=== PATIENT | male | born 1990 | race Caucasian/White ===

== ENCOUNTER 2018-04-02 17:15 | Emergency (ER) | payer OTHER ==
--- NOTE | 2018-04-02 18:43 | ED ---
Male Urogenital HPI - General Chief complaint: Urogenital Stated complaint: abd and testicle pain Time Seen by Provider: 04/02/18 17:43 Source: patient, RN notes reviewed Mode of arrival: ambulatory Limitations: no limitations - History of Present Illness Initial comments: 27-year-old male presents emergency from for left-sided testicular groin pain. Patient states that he's had pain for last 2 weeks. He states initially started after work. He states that he works for [employer] states he does large amount of heavy lifting. He does state throughout the day with ambulation and lifting the pain worsens. Patient was seen at urgent care was diagnosed with groin strain. Patient states symptoms have persisted though he does admit that he has not rested. Patient denies any scrotal swelling, rash or redness. Patient has no dysuria no hematuria. Patient states that the pain originates from his scrotum and physically radiates up in his abdomen has no abdominal pain denies any diarrhea, constipation, nausea vomiting. - Related Data Home Medications Medication Instructions Recorded Confirmed Ibuprofen [Motrin Ib] 800 mg PO TID PRN 04/02/18 04/02/18 Allergies Allergy/AdvReac Type Severity Reaction Status Date / Time caramel Allergy Nausea & Verified 04/02/18 17:45 Vomiting Review of Systems ROS Statement: Those systems with pertinent positive or pertinent negative responses have been documented in the HPI. ROS Other: All systems not noted in ROS Statement are negative. Past Medical History Past Medical History: No Reported History History of Any Multi-Drug Resistant Organisms: None Reported Past Surgical History: No Surgical Hx Reported Past Psychological History: No Psychological Hx Reported Smoking Status: Current every day smoker Past Alcohol Use History: None Reported Past Drug Use History: Marijuana General Exam Limitations: no limitations General appearance: alert, in no apparent distress Head exam: Present: atraumatic, normocephalic, normal inspection Respiratory exam: Present: normal lung sounds bilaterally. Absent: respiratory distress, wheezes, rales, rhonchi, stridor Cardiovascular Exam: Present: regular rate, normal rhythm, normal heart sounds. Absent: systolic murmur, diastolic murmur, rubs, gallop, clicks GI/Abdominal exam: Present: soft, normal bowel sounds. Absent: distended, tenderness, guarding, rebound, rigid exam: Present: normal inspection, testicular tenderness (Mild left). Absent : scrotal swelling, vertical testicular lie Skin exam: Present: warm, dry, intact, normal color. Absent: rash Course Vital Signs 04/02/18 04/02/18 17:31 18:50 Temperature 98.4 F Pulse Rate 95 77 Respiratory 18 16 Rate Blood Pressure 135/73 161/72 O2 Sat by Pulse 98 96 Oximetry Medical Decision Making - Medical Decision Making 27-year-old male presents emergency department for left sided scrotal groin pain. Patient ultrasound which shows no acute abnormality urinalysis is clear. Patient symptoms seem to related to strain. Patient has no abdominal tenderness she's had normal bowel movements and normal vitals. Patient will be discharged at this time advised to rest and follow-up with his PCP urology will be provided. - Lab Data Lab Results 04/02/18 Range/Units 18:40 Urine Color Yellow Urine Appearance Clear (Clear) Urine pH 5.5 (5.0-8.0) Ur Specific [place] 1.024 (1.001-1.035) Urine Protein Negative (Negative) Urine Glucose (UA) Negative (Negative) Urine Ketones Negative (Negative) Urine Blood Negative (Negative) Urine Nitrite Negative (Negative) Urine Bilirubin Negative (Negative) Urine Urobilinogen <2.0 (<2.0) mg/dL Ur Leukocyte Esterase Negative (Negative) Disposition Clinical Impression: Inguinal muscle strain Disposition: HOME SELF-CARE Condition: Stable Instructions: Muscle Strain (ED) Additional Instructions: Please return to the Emergency Department if symptoms worsen or any other concerns. Is patient prescribed a controlled substance at d/c from ED?: No Referrals: Alverto Fan MD [STAFF PHYSICIAN] - 1-2 days Time of Disposition: 19:46
[2018-04-02 18:59] LABS: Appearance,Urine Clear (Clear); Bilirubin,Urine Negative (Negative); Blood,Urine Negative (Negative); Color,Urine Yellow; Glucose,Urine (UA) Negative (Negative); Ketones,Urine Negative (Negative); Leukocyte Esterase,Urine Negative (Negative); Nitrite,Urine Negative (Negative); PH, Urine 5.5 (5.0-8.0); Protein,Urine Negative (Negative); Specific Gravity,Urine 1.024 (1.001-1.035); Urobilinogen,Urine <2.0 mg/dL (<2.0)
--- NOTE | 2018-04-02 19:37 | US ---
EXAMINATION TYPE: US scrotum with doppler. Grayscale and color Doppler Duplex imaging performed of t he scrotum. DATE OF EXAM: 04/02/2018 COMPARISON: NONE CLINICAL HISTORY: Pain. Pain EXAM MEASUREMENTS: TESTICLES: Right Testicle: 5.1 x 2.7 x 3.2 cm cm Left Testicle: 5.1 x 2.4 x 3.3 cm EPIDIDYMIS HEAD: Right Epididymis: 1.1 x .9 x 1.3 cm cm Left Epididymis: .7 x 1.0 x .7 cm Doppler performed to assess for testicular vascularity; good bilateral color flow and waveforms are s een. There is no evidence of testicular torsion. Presence of hydroceles: No Presence of varicoceles: No IMPRESSION: No acute process.
[2018-04-02 19:59] VITALS: BP 148/76; PULSE 78; RESP 18; TEMP 98.2
== END 2018-04-02 19:57 | disposition home or self-care (01) ==
LOC: EC 17:15
DX: S39.011A Strain of muscle, fascia and tendon of abdomen, initial encounter (principal); F17.200 Nicotine dependence, unspecified, uncomplicated; Z91.018 Allergy to other foods; X58.XXXA Exposure to other specified factors, initial encounter
CPT/HCPCS: 76870; 81003; 93975; 99284

== ENCOUNTER 2019-08-13 17:49 | Emergency (ER) | payer OTHER ==
--- NOTE | 2019-08-13 18:18 | ED ---
Fever HPI - General Chief Complaint: Fever Stated Complaint: Fever Source: patient, EMS Mode of arrival: EMS Limitations: no limitations - History of Present Illness Initial Comments: Patient is a 29-year-old male presenting to emergency Department with a chief complaint of cough and fever. States the symptoms started yesterday when he developed a productive cough with white sputum production. He states he also developed fever and began feeling achy. States she went to the urgent care and was diagnosed with bronchitis. States his symptoms worsen and now has developed shortness of breath but denies any wheezing. States he stopped smoking about one week ago and has no history of asthma. Denies any chest pain. This report sore throat but denies any drooling or changes in voice. Denies any headaches, otalgia but does report sinus congestion. States he recently came from his parents house in [place] and his dad had influenza. States he took albuterol after she was prescribed from the urgent care along with prednisone with minimal improvement in symptoms. Denies chest pain, abdominal pain, back pain, vomiting, nausea or diarrhea. Denies one sided lower extremity swelling, recent hospitalization, history of DVT or PE. - Related Data Home Medications Medication Instructions Recorded Confirmed Ibuprofen [Motrin Ib] 800 mg PO TID PRN 04/02/18 04/02/18 Previous Rx's Medication Instructions Recorded Oseltamivir [Tamiflu] 75 mg PO Q12HR #10 cap 08/13/19 Allergies Allergy/AdvReac Type Severity Reaction Status Date / Time caramel Allergy Nausea & Verified 04/02/18 17:45 Vomiting Review of Systems ROS Statement: Those systems with pertinent positive or pertinent negative responses have been documented in the HPI. ROS Other: All systems not noted in ROS Statement are negative. Past Medical History Past Medical History: No Reported History History of Any Multi-Drug Resistant Organisms: None Reported Past Surgical History: No Surgical Hx Reported Past Psychological History: No Psychological Hx Reported Smoking Status: Current every day smoker Past Alcohol Use History: None Reported Past Drug Use History: None Reported General Exam Limitations: no limitations General appearance: alert, in no apparent distress Head exam: Present: atraumatic, normocephalic, normal inspection Eye exam: Present: normal appearance, PERRL, EOMI Pupils: Present: normal accommodation ENT exam: Present: normal exam, normal oropharynx (Mild tonsillar erythema but no enlargement or exudates.), mucous membranes moist, TM's normal bilaterally, normal external ear exam Neck exam: Present: normal inspection, full ROM. Absent: lymphadenopathy Respiratory exam: Present: normal lung sounds bilaterally. Absent: respiratory distress, wheezes, rales Cardiovascular Exam: Present: regular rate, normal rhythm, normal heart sounds GI/Abdominal exam: Present: soft. Absent: distended, tenderness Extremities exam: Present: normal inspection, full ROM Back exam: Present: normal inspection, full ROM Neurological exam: Present: alert, oriented X3 Psychiatric exam: Present: normal affect, normal mood Skin exam: Present: warm, dry, intact, normal color Course Vital Signs 08/13/19 08/13/19 08/13/19 17:56 18:03 19:32 Temperature 99.7 F H 103.3 F H Pulse Rate 105 H 103 H Respiratory 16 18 18 Rate Blood Pressure 118/53 113/48 O2 Sat by Pulse 97 97 Oximetry Medical Decision Making - Medical Decision Making 29-year-old male presenting to the emergency department with a chief complaint of cough and fever. Symptoms began yesterday he was diagnosed with bronchitis but a primary care. He was also given prednisone and albuterol. States symptoms are getting worse and now he developed a fever. Cough is nonproductive with no wheezing. Exam patient is not in any respiratory distress. He does report some shortness of breath. He is a smoker but stopped about one week ago. No history of asthma. No chest pain or back pain or abdominal pain. Patient does have a fever in the ED. Chest x-ray shows a nodule but no signs of pneumonia. Patient is positive for influenza. Patient given antipyretics in the ED. Patient will be discharged with Tamiflu. Return parameters thoroughly discussed the patient is understanding and agreeable. He was advised to follow- up primary care. Case discussed with physician. - Lab Data Lab Results 08/13/19 Range/Units 18:40 Influenza Type A RNA Detected H (Not Detectd) Influenza Type B (PCR) Not Detected (Not Detectd) Disposition Clinical Impression: Influenza, Cough, Fever Disposition: HOME SELF-CARE Condition: Stable Instructions (If sedation given, give patient instructions): Influenza (DC) Additional Instructions: Take prescribed medication as directed. Alternate between Tylenol and Motrin for fever control. Return to emergency department if symptoms worsen. Follow- up with primary care. Prescriptions: Oseltamivir [Tamiflu] 75 mg PO Q12HR #10 cap Is patient prescribed a controlled substance at d/c from ED?: No Referrals: None,Stated [Primary Care Provider] - 1-2 days Time of Disposition: 19:45
--- NOTE | 2019-08-13 18:32 | XR ---
EXAMINATION TYPE: XR chest 2V DATE OF EXAM: 08/13/2019 COMPARISON: NONE HISTORY: Cough and fever TECHNIQUE: FINDINGS: Heart and mediastinum are normal. There is possible 13 mm nodule left upper lobe. This is o vinny the anterior left second rib. The other lung raman are clear. Diaphragm is normal. Bony thorax a ppears normal. IMPRESSION: Possible left upper lobe nodule. Recommend shallow oblique views to confirm or exclude a nodule if clinically indicated. Normal heart.
[2019-08-13] MEDS ORDERED: IBUPROFEN 600 MG TAB PO STA (19:11)
[2019-08-13] MEDS ORDERED: ACETAMINOPHEN TAB 500 MG TAB PO STA (19:42)
[2019-08-13 20:39] VITALS: BP 117/53; PULSE 105; RESP 17; TEMP 101.6
== END 2019-08-13 20:20 | disposition home or self-care (01) ==
LOC: EC 17:49
DX: J11.1 Influenza due to unidentified influenza virus with other respiratory manifestations (principal); R91.1 Solitary pulmonary nodule; Z87.891 Personal history of nicotine dependence; Z91.02 Food additives allergy status
CPT/HCPCS: 71046; 87502; 99284